=== PATIENT | female | born 1945 | race Caucasian/White ===

== ENCOUNTER → 2018-08-08 | Outpatient (CLI) | payer MEDICARE ==
--- NOTE | 2018-08-09 09:16 | CT ---
EXAMINATION TYPE: CT abdomen pelvis w con DATE OF EXAM: 08/08/2018 HISTORY: Abdominal pain with hematuria. CT DLP: 912.4mGycm Automated Exposure Control for Dose Reduction was Utilized. CONTRAST: CT scan of the abdomen and pelvis is performed with oral and with IV Contrast, patient injected with 100 mL of Isovue 300. COMPARISON: None FINDINGS: LUNG BASES: Some scattered blebs or thin-walled cysts throughout the right lower lobe are present. Th ere is mild lateral left basilar linear scarring and/or atelectasis. LIVER/GB: No significant abnormality is appreciated. PANCREAS: No significant abnormality is seen. SPLEEN: No significant abnormality is seen. ADRENALS: No significant abnormality is seen. KIDNEYS: There are prominent central simple appearing parapelvic cysts bilaterally in both kidneys. T here is symmetric cortical medullary uptake and excretion from both kidneys without hydronephrosis no sara bilaterally. Scattered pelvic phleboliths are present. No intraluminal calculus in poorly distend ed bladder is seen. BOWEL: Oral contrast reaches level of terminal ileum. There is no suspicious small or large bowel dil atation. There are diverticula near junction of left and sigmoid colon without convincing CT evidence for acute diverticulitis. Incidental normal-appearing appendix extending inferiorly medially from ce cum coronal image 51 for reference. UTERUS/ADNEXA: Anteverted uterus is seen. LYMPH NODES: No greater than 1cm abdominal or pelvic lymph nodes are appreciated. OSSEOUS STRUCTURES: Moderate disc space narrowing lumbosacral junction. Facet arthropathy lower lumba r levels. OTHER: Mild calcified plaque of aorta extends into iliac branch vessels. IMPRESSION: No significant finding is seen to account for patient's clinical symptoms of hematuria an d pain. Prominent but simple appearing parapelvic cysts in both kidneys are noted. Distal colonic div erticulosis without convincing CT evidence for acute diverticulitis.
== END | disposition home or self-care (01) ==
LOC: RADCTMAIN 15:50
PROVIDERS: ATTEND Family Medicine
DX: K57.30 Diverticulosis of large intestine without perforation or abscess without bleeding (principal); N28.1 Cyst of kidney, acquired
CPT/HCPCS: 82565; 84520; 74177; 36415; Q9967

== ENCOUNTER → 2019-12-19 | Outpatient (CLI) | payer MEDICARE ==
--- NOTE | 2019-12-19 12:05 | US ---
EXAMINATION TYPE: US pelvis complete transvag DATE OF EXAM: 12/19/2019 COMPARISON: NONE CLINICAL HISTORY: 74-year-old female R10.2 PELVIC AND PERINEAL PAIN. UTI, pelvic pressure TECHNIQUE: Transvaginal (TV) and Transabdominal (TA) . Date of LMP: unknown FINDINGS: EXAM MEASUREMENTS: Uterus: 6.4 x 2.8 x 3.5 cm Endometrial Stripe: 1.4 cm Right Ovary: unable to visualize Left Ovary: 2.1 x 1.3 x 1.3 cm 1. Uterus: Anteverted with Nabothian cysts 2. Endometrium: Thickened. Tiny 3.7 mm cystic change within. 3. Right Ovary: Obscured by overlying bowel gas 4. Left Ovary: possible complex cystic area = 1.2 x 1.4 x 1.1cm. A 7 mm mural nodule and a thin sept ation are difficult to exclude. 5. Bilateral Adnexa: appears wnl 6. Posterior cul-de-sac: appears wnl IMPRESSION: 1. Abnormally thickened endometrial stripe for a postmenopausal female. The stripe measures 1.4 cm. D ifferential considerations include endometrial hyperplasia, polyps, and endometrial carcinoma. Furthe r CAPTAIN WAITER/WAITRESS evaluation recommended. 2. A 1.4 cm complex cystic-appearing lesion of the left ovary. Unable to exclude a 7 mm soft tissue m ural nodule and internal septation. Further evaluation with contrast enhanced female pelvic MRI recom mended.
== END | disposition home or self-care (01) ==
LOC: RADUSWWP 10:17
PROVIDERS: ATTEND Family Medicine
DX: Z78.0 Asymptomatic menopausal state (principal); N83.202 Unspecified ovarian cyst, left side
CPT/HCPCS: 76830; 76856

== ENCOUNTER → 2020-05-11 | Outpatient (CLI) | payer MEDICARE ==
--- NOTE | 2020-05-11 11:52 | US ---
EXAMINATION TYPE: US pelvis complete transvag DATE OF EXAM: 05/11/2020 COMPARISON: 12/19/2019 CLINICAL HISTORY: 75-year-old female N83.0 Ovarian cyst. Follow up from previous ultrasound, 3, para 3 TECHNIQUE: Transabdominal sonographic images of the pelvis were acquired. Transvaginal sonographic i mages were medically necessary to better assess the following anatomy: endometrium and ovaries Date of LMP: about 30 years ago FINDINGS: EXAM MEASUREMENTS: Uterus: 5.6 x 3.0 x 3.2 cm Endometrial Stripe: 1.4 cm Right Ovary: not seen Left Ovary: 1.5 x 1.2 x 1.4 cm 1. Uterus: anteverted, mildly heterogeneous, nabothian cysts seen 2. Endometrium: thickened (measured at 1.4 cm on 12/19/2019 as well) 3. Right Ovary: obscured by overlying bowel gas 4. Left Ovary: 1.1 x 0.8 x 1.0cm cystic area, with some septation noted. The previously seen 7 mm mu ral based nodule is not as well-demonstrated on the current exam. 5. Bilateral Adnexa: wnl 6. Posterior cul-de-sac: wnl IMPRESSION: 1. The endometrial stripe remains excessively thickened at 1.4 cm as seen back on 12/19/2019. Further e valuation and management as clinically indicated. 2. Minimally complex cyst measuring 1.1 cm in the left ovary. The previously seen mural based nodule is not well demonstrated on the current exam. There may be some thin septation associated with the cy st. This can be reassessed at subsequent follow-ups. 3. Right ovary could not be visualized.
== END | disposition home or self-care (01) ==
LOC: RADUSWWP 10:52
PROVIDERS: ATTEND Obstetrics & Gynecology
DX: N83.292 Other ovarian cyst, left side (principal); R93.89 Abnormal findings on diagnostic imaging of other specified body structures
CPT/HCPCS: 76830; 76856

== ENCOUNTER → 2020-05-11 | Outpatient (CLI) | payer MEDICARE ==
[2020-05-11 13:05] LABS: Basophils # (A) 0.1 k/uL (0-0.2); Basophils % (A) 1 %; Eosinophils # (A) 0.1 k/uL (0-0.7); Eosinophils % (A) 1 %; HCT 45.8 % (34.0-46.0); HGB 15.2 gm/dL (11.4-16.0); Lymphocytes # (A) 1.6 k/uL (1.0-4.8); Lymphocytes % (A) 28 %; MCH 31.8 pg (25.0-35.0); MCHC 33.2 g/dL (31.0-37.0); MCV 95.8 fL (80.0-100.0); Mean Platelet Volume 6.9; Monocytes # (A) 0.4 k/uL (0-1.0); Monocytes % (A) 6 %; Neutrophils # (A) 3.5 k/uL (1.3-7.7); Neutrophils % (A) 61 %; Platelet Count 285 k/uL (150-450); RBC 4.79 m/uL (3.80-5.40); RDW 12.4 % (11.5-15.5); WBC 5.8 k/uL (3.8-10.6)
== END | disposition home or self-care (01) ==
LOC: LABPAT 10:54
PROVIDERS: ATTEND Obstetrics & Gynecology
DX: Z01.818 Encounter for other preprocedural examination (principal)
CPT/HCPCS: 85025; 93005

== ENCOUNTER 2020-05-18 06:21 | Day surgery (SDC) | payer MEDICARE ==
[2020-05-14 15:15] VITALS: BMI 27.4
--- NOTE | 2020-05-17 16:47 | P.HPOB ---
History of Present Illness H&P Date: 05/17/20 Chief Complaint: Endometrial thickening This is a 75 y.o. female who presents for dilatation and curettage with hysteroscopy due to endometrial thickening on ultrasound. She originally presented with complaints of pelvic pain for about 4 months. She did have some blood with wiping after urination and a pressure sensation. She was on 2 courses of antibiotics and the bleeding did improve. Pelvic US showed uterus measuring 6.4 x 2.8 x 3.5 cm with endometrium of 1.4 cm and a tiny 3.7 mm cystic area within. She also had a left ovarian complex cyst, 1.4 cm with a 7 mm mural nodule. Repeat US no longer showed the mural nodule. OB Hx: . History of 3 vaginal deliveries. 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 Social Hx: . Retired. Review of Systems Constitutional: Denies chills, Denies fever Eyes: denies blurred vision, denies pain Ears, nose, mouth and throat: Denies headache, Denies sore throat Cardiovascular: Denies chest pain, Denies shortness of breath Respiratory: Denies cough Gastrointestinal: Reports abdominal pain Genitourinary: Reports pelvic pain, Denies dysuria Musculoskeletal: Denies myalgias Integumentary: Denies pruritus, Denies rash Neurological: Denies numbness, Denies weakness Psychiatric: Denies anxiety, Denies depression Endocrine: Reports excessive sweating (only on scalp) Past Medical History Past Medical History: Hypertension, Thyroid Disorder Additional Past Medical History / Comment(s): Occ heartburn. Vertigo occ. Thickening of uterine lining History of Any Multi-Drug Resistant Organisms: None Reported Past Surgical History: Orthopedic Surgery Additional Past Surgical History / Comment(s): D&C's. ORIF Rt wrist, has pin. Past Anesthesia/Blood Transfusion Reactions: No Reported Reaction Past Psychological History: No Psychological Hx Reported Smoking Status: Former smoker Past Alcohol Use History: Occasional Past Drug Use History: None Reported - Past Family History Mother Family Medical History: CVA/TIA Medications and Allergies Home Medications Medication Instructions Recorded Confirmed Type Calcium Carbonate [Tums] 500 - 1,000 mg PO QID PRN 05/14/20 05/18/20 History Cholecalciferol [Vitamin D3 (25 5,000 unit PO DAILY 05/14/20 05/18/20 History Mcg = 1000 Iu)] Cyanocobalamin (Vitamin B-12) 1,000 mcg PO DAILY 05/14/20 05/18/20 History [Vitamin B-12] L.acidoph,Paracasei, B.lactis 1 each PO DAILY 05/14/20 05/18/20 History [Probiotic] Levothyroxine Sodium [Synthroid] 137 mcg PO DAILY 05/14/20 05/18/20 History Metoprolol Succinate [Toprol XL] 50 mg PO DAILY 05/14/20 05/18/20 History Zinc 30 mg PO DAILY 05/14/20 05/18/20 History Allergies Allergy/AdvReac Type Severity Reaction Status Date / Time No Known Allergies Allergy Verified 05/18/20 06:55 Exam Osteopathic Statement: *. No significant issues noted on an osteopathic structural exam other than those noted in the History and Physical/Consult. HEENT: within normal limits Heart: regular rate and rhythm Lungs: clear to auscultation bilaterally Abdomen: soft, non-tender Pelvic: uterus small, anteverted, non-tender with no adnexal masses or tenderness. Extremites: Neg. Andrade's Assessment and Plan (1) Endometrial thickening on ultrasound Current Visit: No Status: Acute Code(s): R93.89 - ABNORMAL FINDINGS ON DX IMAGING OF OTH BODY STRUCTURES SNOMED Code(s): 714920596 Plan: Proceed with dilatation and curettage with hysteroscopy. I have discussed the risks, benefits, and alternative therapies for the above- mentioned procedure and for both sedation/anesthesia as well as necessary blood products administration, if indicated, as they pertain to this patient. The patient has indicated her understanding and acceptance of the risks and procedures discussed.
[~2020-05-18 06:21] MED LIST: DEXAMETHASONE SOD PHOSPHATE 4 MG/ML 1 ML VIAL IV ONE; HYDROmorphone 0.5 MG/0.5 ML SYRINGE IVP PRN; LACTATED RINGERS 1,000 ML IV SCH; LIDOCAINE 1% (10MG/ML) FOR IV START INTRADERMA PRN; ONDANSETRON 4 MG/2 ML VIAL IVP ONE; Pre Op ABX Message 1 EACH MISC MISCELLANE ONE
[2020-05-18] MEDS ORDERED: PROPOFOL 10 MG/ML 20 ML VIAL IV ONE (07:34)
[2020-05-18] MEDS ORDERED: fentaNYL (PF) 50 MCG/ML 2 ML AMP ONE (07:34)
[2020-05-18] MEDS ORDERED: LIDOCAINE 1% INJ 10MG/ML (20 ML MDV) ONE (07:34)
--- NOTE | 2020-05-18 08:03 | P.OP ---
Date of Procedure: 05/18/20 Preoperative Diagnosis: Endometrial thickening Postmenopausal bleeding Postoperative Diagnosis: Same Procedure(s) Performed: Dilation and curettage with hysteroscopy Anesthesia: other (Mask general) Surgeon: Kaelyn Luna Estimated Blood Loss (ml): 3 Pathology: other (Endometrial curettings) Condition: stable Disposition: same day Indications for Procedure: This is a 75 y.o. female who presents for dilatation and curettage with hysteroscopy due to endometrial thickening on ultrasound. She originally presented with complaints of pelvic pain for about 4 months. She did have some blood with wiping after urination and a pressure sensation. She was on 2 courses of antibiotics and the bleeding did improve. Pelvic US showed uterus measuring 6.4 x 2.8 x 3.5 cm with endometrium of 1.4 cm and a tiny 3.7 mm cystic area within. She also had a left ovarian complex cyst, 1.4 cm with a 7 mm mural nodule. Repeat US no longer showed the mural nodule. Operative Findings: Uterus is anteverted, with no adnexal masses palpated. Upon hysteroscopy, an atrophic endometrial background is noted but a large endometrial polyp was noted originating from the right upper uterus. Scant endometrial curettings are obtained. Description of Procedure: The patient is taken to the operating room she is placed in the dorsal lithotomy position. She is prepped and draped in the normal sterile fashion. Her bladder is drained with a catheter and then removed. Examination is performed under anesthesia. Uterus is found to be small, anteverted, with no adnexal masses palpated. A weighted speculum was placed in the patient's vagina and a right angle retractor was used to visualize the cervix. The anterior lip of the cervix is grasped with a single-tooth tenaculum. Cervical os was noted to be slightly stenotic and was slightly dilated with a Silva dilator before sounding. Uterus is sounded to 6-1/2 cm. Cervix is gently dilated further with Silva dilators until a hysteroscope could be passed. Hysteroscopy is performed using normal saline. The above noted findings are made and pictures are taken. Next a polyp forceps was introduced and a large polypoid type tissue was removed. Medium-size sharp curet was introduced and sharp curettage was performed until a gritty texture was noted. Very scant further endometrial tissue was obtained. The specimen is removed from the field. The single-tooth tenaculum is removed. Minimal bleeding is noted. All sponges and instruments are removed from the vagina. All sponge counts are correct. The patient is then taken to the recovery room in stable condition.
[2020-05-18] MEDS ORDERED: KETOROLAC 15 MG/ML 1 ML VIAL IVP ONE (08:15)
[2020-05-18 08:21] VITALS: TEMP 97.3
[2020-05-18] MEDS ORDERED: hydrALAZINE HCL 20 MG/ML 1 ML VIAL IVP ONE (08:47)
[2020-05-18] MEDS ORDERED: LACTATED RINGERS 1,000 ML IV ONE (08:48)
[2020-05-18 09:18] VITALS: RESP 16
[2020-05-18 09:53] VITALS: BP 174/92; PULSE 58
== END 2020-05-18 10:16 | disposition home or self-care (01) ==
LOC: OR 06:21
PROVIDERS: ATTEND Obstetrics & Gynecology
DX: N84.0 Polyp of corpus uteri (principal); N95.0 Postmenopausal bleeding; I10 Essential (primary) hypertension; E07.9 Disorder of thyroid, unspecified; K21.9 Gastro-esophageal reflux disease without esophagitis; Z79.890 Hormone replacement therapy; Z79.899 Other long term (current) drug therapy; Z87.891 Personal history of nicotine dependence; Z82.49 Family history of ischemic heart disease and other diseases of the circulatory system
CPT/HCPCS: 88305; 58558; J0360; J1100; J2405; J2001; J3010; J1885; J2704; J1170

== ENCOUNTER → 2020-06-15 | Outpatient (CLI) | payer MEDICARE ==
[2020-06-15 09:25] LABS: Appearance,Urine Clear (Clear); Bilirubin,Urine Negative (Negative); Blood,Urine Negative (Negative); Color,Urine Light Yellow; Glucose,Urine (UA) Negative (Negative); Ketones,Urine Negative (Negative); Leukocyte Esterase,Urine Negative (Negative); Nitrite,Urine Negative (Negative); Protein,Urine Negative (Negative); Specific Gravity,Urine 1.011 (1.001-1.035); Urobilinogen,Urine <2.0 mg/dL (<2.0)
[2020-06-15 09:31] LABS: Basophils # (A) 0.1 k/uL (0-0.2); Basophils % (A) 2 %; Eosinophils # (A) 0.1 k/uL (0-0.7); Eosinophils % (A) 1 %; HCT 46.3 % (34.0-46.0); HGB 15.2 gm/dL (11.4-16.0); Lymphocytes # (A) 1.6 k/uL (1.0-4.8); Lymphocytes % (A) 28 %; MCH 31.2 pg (25.0-35.0); MCHC 32.9 g/dL (31.0-37.0); MCV 94.7 fL (80.0-100.0); Mean Platelet Volume 6.5; Monocytes # (A) 0.4 k/uL (0-1.0); Monocytes % (A) 6 %; Neutrophils # (A) 3.6 k/uL (1.3-7.7); Neutrophils % (A) 62 %; Platelet Count 276 k/uL (150-450); RBC 4.89 m/uL (3.80-5.40); RDW 12.6 % (11.5-15.5); WBC 5.8 k/uL (3.8-10.6)
[2020-06-15 15:35] LABS: African American GFR (CKD) 63.4 (60.0-200.0); Albumin 4.1 g/dL (3.80-4.90); Albumin/Globulin Ratio 1.58 (1.60-3.17); Calcium 9.6 mg/dL (8.7-10.3); Chol/HDL Ratio 3.38; Globulin 2.6 g/dL (1.6-3.3); Non-African American GFR(CKD) 54.7 (60.0-200.0); Potassium 5.5 mmol/L (3.5-5.5); Total Bilirubin 0.4 mg/dL (0.2-1.2); Total Protein 6.7 g/dL (6.2-8.2)
[2020-06-15 15:43] LABS: T4, Free (Free Thyroxine) 1.5 ng/dL (0.80-1.80)
== END | disposition home or self-care (01) ==
LOC: LABWHC1 08:38
PROVIDERS: ATTEND Family Medicine
DX: R53.82 Chronic fatigue, unspecified (principal)
CPT/HCPCS: 36415; 80053; 80061; 81003; 82306; 84439; 84443; 85025

== ENCOUNTER 2023-02-01 20:20 | Observation (INO) | payer MEDICARE ==
[2023-02-01] MEDS ORDERED: RX INFO: IV CONTRAST WAS GIVEN 1 EACH MISC MISCELLANE PRN (20:26)
--- NOTE | 2023-02-01 20:26 | ED ---
General Adult HPI - General Source: RN notes reviewed <Roberta Rondon - Last Filed: 02/01/23 20:23> <Libby Valencia - Last Filed: 02/02/23 01:13> - General Stated complaint: slurred speech Time Seen by Provider: 02/01/23 20:23 - History of Present Illness Initial comments: 77 year female presents to the emergency department with a chief complaint of slurred speech and left sided facial droop. She reports her symptoms started when she woke up around 07:00. (Roberta Rondon) 77-year-old female presents emergency Department with left-sided facial droop. States that she awoke this morning at 7 AM and had symptoms. She noted that she was having some slurred speech. Presents this evening as her symptoms did not improve. She denies any headaches or visual changes. No unilateral numbness, tingling or weakness in her extremities. No history of stroke. Does not take any blood thinners. No recent head trauma. She denies any chest pain or shortness of breath. No other alleviating, precipitating or modifying factors (Libby Valencia) - Related Data Home Medications Medication Instructions Recorded Confirmed Cholecalciferol [Vitamin D3 (25 5,000 unit PO W/LUNCH 05/14/20 02/01/23 Mcg = 1000 Iu)] L.acidoph,Paracasei, B.lactis 1 cap PO W/LUNCH 05/14/20 02/01/23 [Probiotic] Metoprolol Succinate [Toprol XL] 50 mg PO W/BRKFST 05/14/20 02/01/23 Elderberry 100mg 1 cap PO W/LUNCH 02/01/23 02/01/23 Krill Oil(Unknown Dose) 1 cap PO W/LUNCH 02/01/23 02/01/23 Levothyroxine Sodium [Synthroid] 125 mcg PO AC-BRKFST 02/01/23 02/01/23 Serrapeptase 120,000spu 1 cap PO AC-BRKFST 02/01/23 02/01/23 Turmeric 200mg 1 tab PO W/LUNCH 02/01/23 02/01/23 Vitamin C 1600mg 1 tab PO W/LUNCH 02/01/23 02/01/23 Zinc 30mg 1 tab PO W/LUNCH 02/01/23 02/01/23 Allergies Allergy/AdvReac Type Severity Reaction Status Date / Time No Known Allergies Allergy Verified 02/01/23 22:10 Review of Systems ROS Other: All systems not noted in ROS Statement are negative. <Roberta Rondon - Last Filed: 02/01/23 20:23> ROS Other: All systems not noted in ROS Statement are negative. <Libby Valencia - Last Filed: 02/02/23 01:13> ROS Statement: Those systems with pertinent positive or pertinent negative responses have been documented in the HPI. General Exam <Roberta Rondon - Last Filed: 02/01/23 20:23> General appearance: alert, in no apparent distress Head exam: Present: atraumatic Eye exam: Present: normal appearance, PERRL, EOMI. Absent: scleral icterus, conjunctival injection, periorbital swelling ENT exam: Present: other (Left-sided facial droop which appears to involve the upper and lower face. Flattened for head wrinkles) Neck exam: Present: normal inspection. Absent: tenderness, meningismus, lymphadenopathy Respiratory exam: Present: normal lung sounds bilaterally. Absent: respiratory distress, wheezes, rales, rhonchi, stridor Cardiovascular Exam: Present: regular rate, normal rhythm, normal heart sounds. Absent: systolic murmur, diastolic murmur, rubs, gallop, clicks GI/Abdominal exam: Present: soft, normal bowel sounds. Absent: distended, tenderness, guarding, rebound, rigid Extremities exam: Present: normal inspection, full ROM, normal capillary refill, other (Equal hotel custodian strength bilaterally. Equal strength in the lower extremiti es). Absent: tenderness, pedal edema, joint swelling, calf tenderness Back exam: Present: normal inspection Neurological exam: Present: alert, oriented X3, CN II-XII intact Psychiatric exam: Present: normal affect, normal mood Skin exam: Present: warm, dry, intact, normal color. Absent: rash <Libby Valencia - Last Filed: 02/02/23 01:13> - General Exam Comments Initial Comments: Visual Physical Exam Vital signs reviewed General: Well-appearing, nontoxic, no acute distress. Head: Normocephalic, atraumatic Eyes: PERRLA, EOMI ENT: Airway patent Chest: Nonlabored breathing Skin: No visual rash, normal skin tone Neuro: Alert and oriented 3 Musculoskeletal: No gross abnormalities I performed the quick note portion of this exam, verbal signature Roberta Rondon PA-C (Roberta Rondon) Course Vital Signs 02/01/23 02/01/23 02/01/23 20:25 20:49 21:19 Temperature 99.1 F 99.1 F 99.0 F Pulse Rate 63 73 66 Respiratory 18 18 18 Rate Blood Pressure 202/106 196/104 166/127 O2 Sat by Pulse 97 98 98 Oximetry 02/01/23 02/01/23 02/01/23 21:34 21:49 22:04 Temperature 99 F 99 F 99 F Pulse Rate 62 60 62 Respiratory 18 18 18 Rate Blood Pressure 185/100 161/101 163/91 O2 Sat by Pulse 98 98 98 Oximetry Medical Decision Making - Lab Data Result diagrams: 02/01/23 20:52 02/01/23 20:52 <Libby Valencia A - Last Filed: 02/02/23 01:13> - Medical Decision Making Was pt. sent in by a medical professional or institution ([facility]ERR[facility] Silva, MOLDING PLASTERER, urgent care, hospital, or long-term...) When possible be specific @ -No Did you speak to anyone other than the patient for history (EMS, parent, family, police, friend...)? What history was obtained from this source @ -No Did you review nursing and triage notes (agree or disagree)? Why? @ -I reviewed and agree with nursing and triage notes Were old charts reviewed (outside hosp., previous admission, EMS record, old EKG, old radiological studies, urgent care reports/EKG's, long-term records)? Report findings @ -No old charts were reviewed Differential Diagnosis (chest pain, altered mental status, abdominal pain women, abdominal pain men, vaginal bleeding, weakness, fever, dyspnea, syncope, headache, dizziness, GI bleed, back pain, seizure, CVA, palpatations, mental health, musculoskeletal)? @ -Differential CVA Ischemic stroke, hemorrhagic stroke, brain tumor, atypical migraine, Wernicke's encephalopathy, seizure, multiple sclerosis, meningitis, encephalitis, hypoglycemia, Guillain-Shrestha, electrolytes disturbance, myasthenia gravis.... This is not meant to be an all-inclusive list EKG interpreted by me (3pts min.). @ -Yes and demonstrates sinus rhythm with a rate of 72. ND interval 140. QRS 95. 419. No acute ST segment elevation. Inverted T wave in V2. X-rays interpreted by me (1pt min.). @ -Yes and demonstrates mild right hilar fullness CT interpreted by me (1pt min.). @ -Yes and demonstrates no acute CVA U/S interpreted by me (1pt. min.). @ -None done What testing was considered but not performed or refused? (CT, X-rays, U/S, labs)? Why? @ -None What meds were considered but not given or refused? Why? @ -None Did you discuss the management of the patient with other professionals (professionals i.e. , PA, MOLDING PLASTERER, lab, RT, psych nurse, social media developer, instructor extension work, teacher, eeo officer, case finishing machine adjuster)? Give summary @ -Spoke with Dr. Matias will admit the patient. I also spoke with Dr. Aparicio as she is a code stroke Was smoking cessation discussed for >3mins.? @ -No Was critical care preformed (if so, how long)? @ -yes, 35 minutes for code stroke evaluation Were there social determinants of health that impacted care today? How? (Homelessness, low income, unemployed, alcoholism, drug addiction, transportation, low edu. Level, literacy, decrease access to med. care, [place] [facility], rehab)? @ -No Was there de-escalation of care discussed even if they declined (Discuss DNR or withdrawal of care, Hospice)? DNR status @ -No What co-morbidities impacted this encounter? (DM, HTN, Smoking, COPD, CAD, Cancer, CVA, ARF, Chemo, Hep., AIDS, mental health diagnosis, sleep apnea, morbid obesity)? @ -None Was patient admitted / discharged? Hospital course, mention meds given and route, prescriptions, significant lab abnormalities, going to OR and other pertinent info. @ -Upon arrival patient was placed into room 1. Throat history and physical exam was performed. She does have notable facial droop and dysarthria. Code stroke was activated. Last known well was 7 AM. She is taken for CT which demonstrates no acute. She was given an aspirin. There is suspicion for Santoyo's palsy however inform the patient that she needs further evaluation for possible stroke. She was agreeable to this. Patient admitted to Dr. Matias with neurology consultation. Patient remained in stable condition awaiting a bed on the floor Undiagnosed new problem with uncertain prognosis? @ -Yes Drug Therapy requiring intensive monitoring for toxicity (Heparin, Nitro, Insulin, Cardizem)? @ -No Were any procedures done? @ -No Diagnosis/symptom? @ -Acute left-sided facial droop, CVA versus Santoyo's palsy Acute, or Chronic, or Acute on Chronic? @ -Acute Uncomplicated (without systemic symptoms) or Complicated (systemic symptoms)? @ -Complicated Side effects of treatment? @ -No Exacerbation, Progression, or Severe Exacerbation? @ -No Poses a threat to life or bodily function? How? (Chest pain, [place], [place], pneumonia, PE, COPD, DKA, ARF, appy, cholecystitis, CVA, Diverticulitis, Homicidal, Suicidal, threat to staff... and all critical care pts) @ -Yes patient has suffered from left-sided facial droop which may be indicative of a CVA (Libby Valencia) - Lab Data Lab Results 02/01/23 02/01/23 02/01/23 Range/Units 20:52 20:52 20:52 WBC 6.9 (3.8-10.6) k/uL RBC 4.41 (3.80-5.40) m/uL Hgb 14.5 (11.4-16.0) gm/dL Hct 42.2 (34.0-46.0) % MCV 95.6 (80.0-100.0) fL MCH 32.9 (25.0-35.0) pg MCHC 34.5 (31.0-37.0) g/dL RDW 13.2 (11.5-15.5) % Plt Count 192 (150-450) k/uL MPV 7.5 Neutrophils % 72 % Lymphocytes % 20 % Monocytes % 5 % Eosinophils % 1 % Basophils % 0 % Neutrophils # 5.0 (1.3-7.7) k/uL Lymphocytes # 1.4 (1.0-4.8) k/uL Monocytes # 0.4 (0-1.0) k/uL Eosinophils # 0.1 (0-0.7) k/uL Basophils # 0.0 (0-0.2) k/uL PT 10.8 (9.0-12.0) sec INR 1.0 (<1.2) APTT 24.1 (22.0-30.0) sec Sodium 134 L (137-145) mmol/L Potassium 4.5 (3.5-5.1) mmol/L Chloride 102 (98-107) mmol/L Carbon Dioxide 24 (22-30) mmol/L Anion Gap 8 mmol/L BUN 21 H (7-17) mg/dL Creatinine 0.83 (0.52-1.04) mg/dL Est GFR (CKD-EPI)AfAm 79 (>60 ml/min/1.73 sqM) Est GFR (CKD-EPI)NonAf 68 (>60 ml/min/1.73 sqM) Glucose 104 H (74-99) mg/dL Calcium 8.8 (8.4-10.2) mg/dL Total Bilirubin 1.0 (0.2-1.3) mg/dL AST 22 (14-36) U/L ALT 12 (4-34) U/L Alkaline Phosphatase 67 (38-126) U/L Creatine Kinase 42 (30-135) U/L Troponin I (0.000-0.034) ng/mL Total Protein 6.6 (6.3-8.2) g/dL Albumin 3.4 L (3.5-5.0) g/dL 02/01/23 Range/Units 20:52 WBC (3.8-10.6) k/uL RBC (3.80-5.40) m/uL Hgb (11.4-16.0) gm/dL Hct (34.0-46.0) % MCV (80.0-100.0) fL MCH (25.0-35.0) pg MCHC (31.0-37.0) g/dL RDW (11.5-15.5) % Plt Count (150-450) k/uL MPV Neutrophils % % Lymphocytes % % Monocytes % % Eosinophils % % Basophils % % Neutrophils # (1.3-7.7) k/uL Lymphocytes # (1.0-4.8) k/uL Monocytes # (0-1.0) k/uL Eosinophils # (0-0.7) k/uL Basophils # (0-0.2) k/uL PT (9.0-12.0) sec INR (<1.2) APTT (22.0-30.0) sec Sodium (137-145) mmol/L Potassium (3.5-5.1) mmol/L Chloride (98-107) mmol/L Carbon Dioxide (22-30) mmol/L Anion Gap mmol/L BUN (7-17) mg/dL Creatinine (0.52-1.04) mg/dL Est GFR (CKD-EPI)AfAm (>60 ml/min/1.73 sqM) Est GFR (CKD-EPI)NonAf (>60 ml/min/1.73 sqM) Glucose (74-99) mg/dL Calcium (8.4-10.2) mg/dL Total Bilirubin (0.2-1.3) mg/dL AST (14-36) U/L ALT (4-34) U/L Alkaline Phosphatase (38-126) U/L Creatine Kinase (30-135) U/L Troponin I <0.012 (0.000-0.034) ng/mL Total Protein (6.3-8.2) g/dL Albumin (3.5-5.0) g/dL Disposition <Roberta Rondon - Last Filed: 02/01/23 20:23> Is patient prescribed a controlled substance at d/c from ED?: No Time of Disposition: 23:11 Decision to Admit Reason: Admit from EC Decision Date: 02/01/23 Decision Time: 23:11 <Libby Valencia - Last Filed: 02/02/23 01:13> Clinical Impression: Facial droop Disposition: ADMITTED IP TO THIS HOSP Condition: Stable
--- NOTE | 2023-02-01 20:46 | CT ---
EXAMINATION TYPE: CT brain wo con DATE OF EXAM: 02/01/2023 COMPARISON: 02/01/2023 INDICATION: left sided facial droop. neuro deficit DLP: 1159.4 mGycm, Automated exposure control for dose reduction was used. CONTRAST: None CT of the brain is performed utilizing 3 mm thick sections through the posterior fossa and 3 mm thick sections through the remaining calvarium. Study is performed within 24 hours of arrival to the hosp [place]. No abnormal hyperdensity is present to suggest an acute intracranial hemorrhage. No mass lesion is evident. No acute infarcts are evident. Ventricles and sulci are appropriate for the patient age. Paranasal sinuses and mastoid air cells within the [id number] are clear. IMPRESSIONS: 1. No acute intracranial process. Follow-up MRI can be performed as clinically indicated
[2023-02-01 21:06] LABS: Basophils % (A) 0 %; Eosinophils # (A) 0.1 k/uL (0-0.7); Eosinophils % (A) 1 %; HCT 42.2 % (34.0-46.0); HGB 14.5 gm/dL (11.4-16.0); Lymphocytes # (A) 1.4 k/uL (1.0-4.8); Lymphocytes % (A) 20 %; MCH 32.9 pg (25.0-35.0); MCHC 34.5 g/dL (31.0-37.0); MCV 95.6 fL (80.0-100.0); Mean Platelet Volume 7.5; Monocytes # (A) 0.4 k/uL (0-1.0); Monocytes % (A) 5 %; Neutrophils % (A) 72 %; Platelet Count 192 k/uL (150-450); RBC 4.41 m/uL (3.80-5.40); RDW 13.2 % (11.5-15.5); WBC 6.9 k/uL (3.8-10.6)
[2023-02-01 21:15] LABS: ALT 12 U/L (4-34); AST 22 U/L (14-36); African American GFR (CKD) 79 (>60 ml/min/1.73 sqM); Albumin 3.4 g/dL (3.5-5.0); Alkaline Phosphatase 67 U/L (38-126); Anion Gap 8 mmol/L; Blood Urea Nitrogen 21 mg/dL (7-17); Calcium 8.8 mg/dL (8.4-10.2); Carbon Dioxide 24 mmol/L (22-30); Chloride 102 mmol/L (98-107); Creatine Kinase 42 U/L (30-135); Glucose 104 mg/dL (74-99); Non-African American GFR(CKD) 68 (>60 ml/min/1.73 sqM); Potassium 4.5 mmol/L (3.5-5.1); Sodium 134 mmol/L (137-145); Total Protein 6.6 g/dL (6.3-8.2)
[2023-02-01 21:16] LABS: Partial Thromboplastin Time 24.1 sec (22.0-30.0); Prothrombin Time 10.8 sec (9.0-12.0)
--- NOTE | 2023-02-01 22:38 | CT ---
EXAMINATION TYPE: CT angio head neck DATE OF EXAM: 02/01/2023 HISTORY: left sided facial droop. neuro deficit COMPARISON: CT DLP: 431.6 mGycm. Automated Exposure Control for Dose Reduction was Utilized. TECHNIQUE: CTA scan of the neck is performed with IV Contrast, patient injected with 82ml mL of Isov ue 370, axial images are obtained, coronal and sagittal reformatted images are reviewed. Three-D kye nstructed images are created on an independent workstation and reviewed. Source images are reviewed. FINDINGS: Carotid/Vascular Structures: There is a 3 vessel arch. Common carotid arteries bifurcate into internal and external carotid arteries without significant codie w limiting stenosis. There is a kink within the mid left internal carotid artery. Vertebral arteries are codominant. Internal carotid arteries and vertebral arteries are patent to the skull base. Cervical of Sal: Vertebral basilar system appears normal. Posterior cerebral vasculature is unrema rkable. Internal carotid arteries bifurcate normally into A1 and M1 segments. A2 segments are normal. The anterior communicating artery is patent. The right posterior communicating artery is patent. The left posterior communicating artery may be absent. IMPRESSION: 1. No flow-limiting stenosis bilateral carotid bifurcations. 2. Normal [place] of [place] NASCET criteria was used in interpretation of this exam?
--- NOTE | 2023-02-01 22:58 | XR ---
EXAM: XR Chest, 2 Views CLINICAL HISTORY: ITS.REASON XR Reason: altered mental status TECHNIQUE: Frontal and lateral views of the chest. COMPARISON: None. FINDINGS: Lungs: Right hilar fullness. Pleural space: Unremarkable. No pneumothorax. Heart: Unremarkable. No cardiomegaly. Bones/joints: Degenerative changes seen in the spine and shoulders. IMPRESSION: 1. No radiographic evidence of acute cardiopulmonary abnormality. 2. Right hilar fullness. Consider evaluation with CT as a mass and/or lymphadenopathy is not excluded.
[2023-02-01] MEDS ORDERED: ASPIRIN 325 MG TAB PO STA (23:11)
[2023-02-01] MEDS ORDERED: ACETAMINOPHEN TAB 325 MG TAB PO PRN (23:11)
[2023-02-01] MEDS ORDERED: ATORVASTATIN 80 MG TAB PO SCH (23:15)
--- NOTE | 2023-02-02 04:07 | P.HPIM ---
History of Present Illness H&P Date: 02/02/23 Chief Complaint: left facial droop 77-year-old female with hypothyroid hypertension Coming in for evaluation of left facial droop she woke up this morning at 7 in the morning noticed that she has left facial droop and slurred speech however she did not seek any medic L help she was hoping for that to improve on its own but then this evening she decided to come in for evaluation as symptoms has not improved she denies any associated changes in vision, hearing, or weakness nubmness or tingling in her extremities no history of stroke, CAD or blood clots. no history of afib she denies tobacco smoking ,illicit drugs, but admits to a cocktail or two every night denies any recent injuries, falls or head trauma. review of systems Pertinent positives as noted in HPI. All other systems were reviewed and are negative on exam Constitutional: No acute distress, conversant, pleasant Eyes: Anicteric sclerae, moist conjunctiva, Pupils equal round reactive to light ENMT: NC/AT Oropharynx clear, no erythema, or exudates Neck: Supple, no masses, or JVD No carotid bruits No thyromegaly Lungs: Clear to auscultation Clear to percussion Normal respiratory effort, no accessory muscle use Cardiovascular: Heart regular in rate and rhythm, No murmurs, gallops, or rubs No peripheral edema Abdominal: Soft Nontender, no guarding, rebound or rigidity Abdomen moving with respiration Normoactive bowel sounds No hepatomegaly, No splenomegaly No palpable mass No abdominal wall hernia noted Skin: Normal temperature, tone, texture, turgor No induration No subcutaneous nodules No rash, lesions No ulcers Extremities: No digital cyanosis No clubbing Pedal pulses intact and symmetrical Radial pulses intact and symmetrical No calf tenderness Psychiatric: Alert and oriented to person, place and time Appropriate affect fair judgement Neuro Muscles Strength 5/5 in all 4 extremities Sensation to light touch grossly present throughout Cranial nerves II-XII grossly intact except for VII CN on the left side with some degree of left facial droop of upper motor neuron type. finger nose exam intact bilaterally Lymphatics: no palpable cervical or supraclavicular lymph nodes Past Medical History Past Medical History: Hypertension History of Any Multi-Drug Resistant Organisms: None Reported Past Surgical History: Orthopedic Surgery Past Psychological History: No Psychological Hx Reported Smoking Status: Never smoker Past Alcohol Use History: Daily Past Drug Use History: None Reported Medications and Allergies Home Medications Medication Instructions Recorded Confirmed Type Cholecalciferol [Vitamin D3 (25 5,000 unit PO W/LUNCH 05/14/20 02/01/23 History Mcg = 1000 Iu)] L.acidoph,Paracasei, B.lactis 1 cap PO W/LUNCH 05/14/20 02/01/23 History [Probiotic] Metoprolol Succinate [Toprol XL] 50 mg PO W/BRKFST 05/14/20 02/01/23 History Elderberry 100mg 1 cap PO W/LUNCH 02/01/23 02/01/23 History Krill Oil(Unknown Dose) 1 cap PO W/LUNCH 02/01/23 02/01/23 History Levothyroxine Sodium [Synthroid] 125 mcg PO AC-BRKFST 02/01/23 02/01/23 History Serrapeptase 120,000spu 1 cap PO AC-BRKFST 02/01/23 02/01/23 History Turmeric 200mg 1 tab PO W/LUNCH 02/01/23 02/01/23 History Vitamin C 1600mg 1 tab PO W/LUNCH 02/01/23 02/01/23 History Zinc 30mg 1 tab PO W/LUNCH 02/01/23 02/01/23 History Allergies Allergy/AdvReac Type Severity Reaction Status Date / Time No Known Allergies Allergy Verified 02/01/23 22:10 Physical Exam Vitals: Vital Signs Temp Pulse Resp BP Pulse Ox 02/02/23 01:13 68 18 171/96 98 02/02/23 00:13 62 18 175/105 98 02/01/23 23:49 66 18 168/89 98 02/01/23 23:19 64 18 170/96 98 02/01/23 23:13 99.0 F 64 18 170/96 98 02/01/23 22:49 99 F 68 18 182/92 98 02/01/23 22:19 99 F 64 18 167/91 98 02/01/23 22:04 99 F 62 18 163/91 98 02/01/23 21:49 99 F 60 18 161/101 98 02/01/23 21:34 99 F 62 18 185/100 98 02/01/23 21:19 99.0 F 66 18 166/127 98 02/01/23 20:49 99.1 F 73 18 196/104 98 02/01/23 20:25 99.1 F 63 18 202/106 97 Intake and Output 02/01/23 02/01/23 02/02/23 14:59 22:59 06:59 Other: Weight 77.111 kg Results CBC & Chem 7: 02/01/23 20:52 02/01/23 20:52 Labs: Abnormal Lab Results - Last 24 Hours (Table) 02/01/23 Range/Units 20:52 Sodium 134 L (137-145) mmol/L BUN 21 H (7-17) mg/dL Glucose 104 H (74-99) mg/dL Albumin 3.4 L (3.5-5.0) g/dL Assessment and Plan Assessment: 77 year old female coming in with left facial droop and slurred speech, I discussed the case with ED doc and I accepted the admission for stroke for further workup with anticiipated length of stay > 2 midnights stroke with left facial droop out of window for tpa CT brain no acute pathology CTA head and neck no major blood vessel occlusions blood work over all unremarkable Hgb 14.5 , WBC 6.9 BUN 21 cr 0.83 trops negative EKG NSR CXR no acute pathology aspirin atorvastatin plavix neuro consult PT /OT neuro checks permissive hypertension resume metoprolol in AM check echocardiogram with bubble study check lipid panel in AM hypothyroid resume levothyroxine full code DVT PPX mechanical
[2023-02-02] MEDS ORDERED: CLOPIDOGREL 75 MG TAB PO STA (04:18)
[2023-02-02] MEDS: LEVOTHYROXINE 125 MCG TAB PO SCH (05:51)
[2023-02-02] MEDS: METOPROLOL SUCCINATE (ER) 50 MG TAB.ER.24H PO SCH (06:59)
[2023-02-02] MEDS: PANTOPRAZOLE 40 MG TABLET PO SCH (07:00)
[2023-02-02] MEDS: ASPIRIN 325 MG TAB PO SCH (08:16)
[2023-02-02] MEDS: CLOPIDOGREL 75 MG TAB PO SCH (08:16)
[2023-02-02] MEDS: ATORVASTATIN 40 MG TAB PO SCH (08:16)
--- NOTE | 2023-02-02 15:29 | CA ---
Transthoracic Echo Report Name: Geraldine Jo Age: 77 Gender: F : 1945 Exam Date: 02/02/2023 09:33 Exam Location: [facility] Ht (in): 66 Wt (lb): 170 Ordering Physician: Ashly Rodriguez MD Attending/Referring Phys: [id number], Michael Tamper Operator Remi Waller Procedure CPT: Indications: bubble study for stroke Cardiac Hx: Technical Quality: Good Contrast 1: Total Dose (mL): Contrast 2: Total Dose (mL): MEASUREMENTS (Male / Female) Normal Values 2D ECHO LV Diastolic Diameter PLAX 4.2 cm 4.2 - 5.9 / 3.9 - 5.3 cm LV Systolic Diameter PLAX 3.1 cm IVS Diastolic Thickness 1.1 cm 0.6 - 1.0 / 0.6 - 0.9 cm LVPW Diastolic Thickness 1.0 cm 0.6 - 1.0 / 0.6 - 0.9 cm LV Relative Wall Thickness 0.5 RV Internal Dim ED PLAX 2.9 cm LVOT Diameter 2.1 cm Aortic Root Diameter 2.9 cm LA Systolic Diameter LX 2.5 cm 3.0 - 4.0 / 2.7 - 3.8 cm LV Diastolic Volume MOD BP 52.4 cm??? 67 - 155 / 56 - 104 cm??? LV Systolic Volume MOD BP 21.4 cm??? 22 - 58 / 19 - 49 cm??? LV Ejection Fraction MOD BP 59.1 % >= 55 % LV Cardiac Index MOD BP 889.9 cm???/min???m??? LV Diastolic Volume MOD 4C 53.2 cm??? LV Systolic Volume MOD 4C 21.2 cm??? LV Ejection Fraction MOD 4C 60.2 % LV Cardiac Index MOD 4C 922.1 cm???/min???m??? LV Diastolic Length 4C 7.4 cm LV Systolic Length 4C 6.3 cm LV Diastolic Volume MOD 2C 51.5 cm??? LV Systolic Volume MOD 2C 20.6 cm??? LV Ejection Fraction MOD 2C 59.9 % LV Cardiac Index MOD 2C 887.3 cm???/min???m??? LV Diastolic Length 2C 7.5 cm LV Systolic Length 2C 6.7 cm LA Volume 48.7 cm??? 18 - 58 / 22 - 52 cm??? Ascending Aorta Diameter 3.2 cm DOPPLER AV Peak Velocity 136.7 cm/s AV Peak Gradient 7.5 mmHg AI Peak Velocity 107.3 cm/s AI Peak Gradient 4.6 mmHg AI Pressure Half Time 256.2 ms LVOT Peak Velocity 88.2 cm/s LVOT Peak Gradient 3.1 mmHg AV Area Cont Eq pk 2.2 cm??? MV Peak Velocity 98.5 cm/s MV Peak Gradient 3.9 mmHg MV Mean Velocity 38.3 cm/s MV Mean Gradient 0.7 mmHg MV Velocity Time Integral 30.1 cm Mitral E Point Velocity 41.5 cm/s Mitral A Point Velocity 90.9 cm/s Mitral E to A Ratio 0.5 MV Deceleration Time 495.5 ms MV E' Velocity 4.7 cm/s Mitral E to MV E' Ratio 8.8 TR Peak Velocity 189.9 cm/s TR Peak Gradient 14.4 mmHg Right Ventricular Systolic Press 20.7 mmHg PV Peak Velocity 85.3 cm/s PV Peak Gradient 2.9 mmHg FINDINGS Left Ventricle Normal LV size and wall thickness. Left ventricular ejection fraction is estimated at 50-55 %. Right Ventricle Normal right ventricular size. RVSP= 34mmhg. Right Atrium Normal right atrial size. Left Atrium Normal left atrial size. LA Volume index= 26ml/m2. Negative agitated saline study. Mitral Valve Structurally normal mitral valve. No mitral regurgitation. Aortic Valve Trileaflet aortic valve. Trace AI. Tricuspid Valve Structurally normal tricuspid valve. Mild TR. Pulmonic Valve Pulmonic valve not well visualized. Pericardium Normal pericardium. Aorta Normal size aortic root and proximal ascending aorta. CONCLUSIONS Negative Bubble study. Normal LV size and systolic function Previewed by: Dr. Ronald Mcdonnell MD (Electronically Signed) Final Date: 02 February 2023 15:28
[2023-02-02 18:14] LABS: Chol/HDL Ratio 2.92 Ratio; LDL Cholesterol,Calculated 79.8 mg/dL (0.0-131.0); VLDL Calculation 14.94 mg/dL (5.00-40.00)
[2023-02-02 22:29] LABS: T4, Free (Free Thyroxine) 1.47 ng/dL (0.78-2.19)
--- NOTE | 2023-02-02 23:34 | P.CNNES ---
History of Present Illness Consult date: 02/02/23 Requesting physician: Libby Valencia Reason for Consult: left sided facial droop, bells vs cva History of Present Illness: Patient is a 77-year-old right-handed female with history of hypertension, came to the hospital yesterday at 8:20 PM for strokelike symptoms. Patient states that she woke up yesterday at 7 AM and felt something weird about her left side of the face and also noticed slurred speech. She also noticed some different feeling in the left upper limb, not as good as the right. She denies any symptoms in the lower extremities. Denies any changes in the taste sensation, or any headache. Vital signs on arrival blood pressure 202/106, pulse rate 63, temperature 99.1. Blood test shows normal CBC, PT/PTT, normal CMP, troponin. TSH is 0.140, free T4 1 0.47. Internal medicine to address abnormal thyroid functions. CT head revealed no acute intracranial process. Follow-up MRI can be performed as clinically indicated. Chest x-ray revealed no radiographic evidence of acute cardiopulmonary abnormality. Right hilar fullness. Consider evaluation with CT as a mass and/or lymphadenopathy is not excluded. Patient smoked 1 pack per day for 30 years, quit in mid 40s. She has hypertension for 3-4 years. Denies diabetes. She drinks couple drinks per night. Review of Systems Constitutional: Denies chills, Denies fever Eyes: denies blurred vision, denies diplopia, denies pain Ears: bilateral: tinnitus (Old), deny: decreased hearing, ear discharge Ears, nose, mouth and throat: Denies headache, Denies sore throat Cardiovascular: Denies chest pain, Denies shortness of breath Respiratory: Denies cough, Denies excessive sputum Gastrointestinal: Denies abdominal pain, Denies diarrhea, Denies nausea, Denies vomiting Genitourinary: Denies dysuria, Denies hematuria, Denies urge incontinence Musculoskeletal: Reports neck pain (sleeping and see chiropracter), Denies low back pain, Denies myalgias Integumentary: Denies pruritus, Denies rash Neurological: Reports as per HPI Psychiatric: Denies anxiety, Denies depression Endocrine: Denies fatigue, Denies weight change Past Medical History Past Medical History: Hypertension, Thyroid Disorder History of Any Multi-Drug Resistant Organisms: None Reported Past Surgical History: Orthopedic Surgery Past Psychological History: No Psychological Hx Reported Smoking Status: Former smoker Past Alcohol Use History: Daily Past Drug Use History: None Reported Medications and Allergies Home Medications Medication Instructions Recorded Confirmed Type Cholecalciferol [Vitamin D3 (25 5,000 unit PO W/LUNCH 05/14/20 02/01/23 History Mcg = 1000 Iu)] L.acidoph,Paracasei, B.lactis 1 cap PO W/LUNCH 05/14/20 02/01/23 History [Probiotic] Metoprolol Succinate [Toprol XL] 50 mg PO W/BRKFST 05/14/20 02/01/23 History Elderberry 100mg 1 cap PO W/LUNCH 02/01/23 02/01/23 History Krill Oil(Unknown Dose) 1 cap PO W/LUNCH 02/01/23 02/01/23 History Levothyroxine Sodium [Synthroid] 125 mcg PO AC-BRKFST 02/01/23 02/01/23 History Serrapeptase 120,000spu 1 cap PO AC-BRKFST 02/01/23 02/01/23 History Turmeric 200mg 1 tab PO W/LUNCH 02/01/23 02/01/23 History Vitamin C 1600mg 1 tab PO W/LUNCH 02/01/23 02/01/23 History Zinc 30mg 1 tab PO W/LUNCH 02/01/23 02/01/23 History Allergies Allergy/AdvReac Type Severity Reaction Status Date / Time No Known Allergies Allergy Verified 02/01/23 22:10 Physical Examination - Vital Signs Vital Signs: Vital Signs Temp Pulse Pulse Resp BP BP Pulse Ox 02/02/23 18:20 97.5 F L 60 18 167/78 95 02/02/23 06:00 65 18 173/93 98 02/02/23 01:13 68 18 171/96 98 02/02/23 00:13 62 18 175/105 98 02/01/23 23:49 66 18 168/89 98 02/01/23 23:19 64 18 170/96 98 02/01/23 23:13 99.0 F 64 18 170/96 98 02/01/23 22:49 99 F 68 18 182/92 98 02/01/23 22:19 99 F 64 18 167/91 98 02/01/23 22:04 99 F 62 18 163/91 98 02/01/23 21:49 99 F 60 18 161/101 98 02/01/23 21:34 99 F 62 18 185/100 98 02/01/23 21:19 99.0 F 66 18 166/127 98 02/01/23 20:49 99.1 F 73 18 196/104 98 02/01/23 20:25 99.1 F 63 18 202/106 97 Intake and Output 02/02/23 02/02/23 02/02/23 06:59 14:59 22:59 Other: Weight 77.111 kg Patient is an elderly female, very pleasant, in no acute distress. Patient is alert awake oriented to time place and person. Speech and language functions are normal. Patient can name and repeat very well. No aphasia or dysarthria. Attention, concentration and fund of knowledge is adequate. On cranial nerve examination, pupils are equal, round and reacting to light, visual mota are full on confrontation, with no neglect on double simultaneous stimulation. Extraocular muscles are intact with no nystagmus. Patient has mild left facial weakness, central type, with sparing of the forehead. Her tongue protrudes to the midline. Palatal elevation and sensation normal, hearing and shoulder shrug normal, facial sensation normal. On muscle strength testing, there is no pronator drift and the strength is normal in arms and legs distally and proximally. Deep tendon reflexes are symmetric 1+ all over and plantars are downgoing bilaterally. Sensory to touch is equal with no neglect on double simultaneous stimulation. Cerebellar function showed no ataxia for [id number] testing. No dysdiadochokinesia. No ataxia for [id number] testing on either side. Tone and bulk of muscles normal. Gait deferred.. On general examination, there is no carotid bruit or murmur, S1-S2 audible. Chest is clear on consultation. Abdomen is soft nontender. No organomegaly, bowel sounds present. Peripheral pulses are present. No edema. Results - Laboratory Findings CBC and BMP: 02/01/23 20:52 02/01/23 20:52 Abnormal Lab Findings: Abnormal Labs 02/01/23 20:52 Sodium 134 L BUN 21 H Glucose 104 H Albumin 3.4 L Assessment and Plan Assessment: * Probable acute ischemic stroke with left facial weakness, central type. Patient also had mild symptoms left upper extremities but now seems to have resolved. No evidence of Santoyo's palsy. Patient's current NIH stroke scale is 1. * Hypertension, recently worse * Hyperlipidemia * Hypothyroidism * X tobacco use Plan: * Patient was not a candidate for TPA, as she came > 4.5 hours from stroke onset. No large vessel occlusion. * Check MRI of the brain without contrast, evaluate for acute CVA * 2-D echo with bubble study revealed normal left-ventricular size and systolic function with EF 50-55%. Normal left atrial size. Negative bubble study. Aortic valve normal. Trace AI. * CTA head and neck showed: No flow-limiting stenosis bilateral carotid bifur cation. Normal [place] of [place]. * Fasting a.m. lipid panel with cholesterol 144, LDL 79.8, HDL 49 and triglycerides 74. Agree with starting Lipitor 40 mg daily. * Hemoglobin A1c * Permissive hypertension for next 24-48 hours * Close neuro checks. * Patient has received a loading dose of Plavix 300 mg in the ER, and started on Plavix 75 mg daily. Patient also received aspirin 325 mg daily. * Telemetry monitoring rule out any arrhythmia * Speech therapy * Neurology will continue to follow. Thank you for the consult.
[2023-02-03] MEDS: LEVOTHYROXINE 125 MCG TAB PO SCH (08:41)
[2023-02-03] MEDS: METOPROLOL SUCCINATE (ER) 50 MG TAB.ER.24H PO SCH (08:41)
[2023-02-03] MEDS: PANTOPRAZOLE 40 MG TABLET PO SCH (08:41)
[2023-02-03] MEDS: ASPIRIN 325 MG TAB PO SCH (09:33)
[2023-02-03] MEDS: ATORVASTATIN 40 MG TAB PO SCH (09:33)
[2023-02-03] MEDS: CLOPIDOGREL 75 MG TAB PO SCH (09:33)
[2023-02-03 10:54] VITALS: BP 156/80; PULSE 66; RESP 18; TEMP 97.6
--- NOTE | 2023-02-03 12:59 | P.DS ---
Providers Date of admission: 02/01/23 23:11 Expected date of discharge: 02/03/23 Attending physician: Ashly Rodriguez MD Consults: 02/01/23 23:12 Consult Physician Urgent Consulting Provider: Prerna Christianson Consult Reason/Comments: left sided facial droop, bells vs cva Do you want consulting provider notified?: Yes Primary care physician: DICK [place] Hospital Course: Discharge Diagnosis: Acute ischemic stroke with left-sided facial weakness Hypertension Dyslipidemia Hypothyroidism Hospital Course: 77-year-old female with hypothyroid and hypertension presented with left facial droop. Out of TPA window. CT brain no acute pathology CTA head and neck no major blood vessel occlusions blood work over all unremarkable Hgb 14.5 , WBC 6.9 BUN 21 cr 0.83 trops negative EKG NSR CXR no acute pathology Echocardiogram showed normal LV size and systolic function, negative bubble study Facial droop improved at the time of discharge. Patient being discharged with a 30 day event monitor, aspirin, Plavix, statin. Dual antiplatelet therapy for the 21 days, and then aspirin alone. Follow-up with PCP and neurology. Her TSH was mildly suppressed, normal free T4. Patient is on levothyroxine. Repeat TSH in 4-6 weeks. She may need further titration of blood pressure medications as an outpatient. Patient seen and examined at bedside. Vital signs reviewed and stable. General: nontoxic, no distress, appears at stated age Derm: warm, dry Head: atraumatic, normocephalic, symmetric Eyes: EOMI, no lid lag, anicteric sclera Mouth: no lip lesion, mucus membranes moist Cardiovascular: S1S2 reg, no murmur Lungs: CTA bilateral, no rhonchi, no rales , no accessory muscle use Abdominal: soft, nontender to palpation, no guarding, no appreciable organomegaly Ext: no gross muscle atrophy, no edema, no contractures Neuro: CN II-XI grossly intact, no focal neuro deficits Psych: Alert, oriented, appropriate affect A total of 36 minutes of time were spent preparing this complex discharge summary. Patient was discharged on 02/03/23 at 10:31. Patient Condition at Discharge: Stable Plan - Discharge Summary Discharge Rx Participant: Yes New Discharge Prescriptions: New Aspirin 81 mg PO DAILY #90 tab Atorvastatin [Lipitor] 40 mg PO DAILY #90 tab Clopidogrel [Plavix] 75 mg PO DAILY #20 tab Pantoprazole [Protonix] 40 mg PO AC-BRKFST #90 tab Continue Metoprolol Succinate [Toprol XL] 50 mg PO W/BRKFST Cholecalciferol [Vitamin D3 (25 Mcg = 1000 Iu)] 5,000 unit PO W/LUNCH L.acidoph,Paracasei, B.lactis [Probiotic] 1 cap PO W/LUNCH Vitamin C 1600mg 1 tab PO W/LUNCH Zinc 30mg 1 tab PO W/LUNCH Levothyroxine Sodium [Synthroid] 125 mcg PO AC-BRKFST Turmeric 200mg 1 tab PO W/LUNCH No Action Elderberry 100mg 1 cap PO W/LUNCH Serrapeptase 120,000spu 1 cap PO AC-BRKFST Krill Oil(Unknown Dose) 1 cap PO W/LUNCH Discharge Medication List Cholecalciferol [Vitamin D3 (25 Mcg = 1000 Iu)] 5,000 unit PO W/LUNCH 05/14/20 [History] L.acidoph,Paracasei, B.lactis [Probiotic] 1 cap PO W/LUNCH 05/14/20 [History] Metoprolol Succinate [Toprol XL] 50 mg PO W/BRKFST 05/14/20 [History] Elderberry 100mg 1 cap PO W/LUNCH 02/01/23 [History] Krill Oil(Unknown Dose) 1 cap PO W/LUNCH 02/01/23 [History] Levothyroxine Sodium [Synthroid] 125 mcg PO AC-BRKFST 02/01/23 [History] Serrapeptase 120,000spu 1 cap PO AC-BRKFST 02/01/23 [History] Turmeric 200mg 1 tab PO W/LUNCH 02/01/23 [History] Vitamin C 1600mg 1 tab PO W/LUNCH 02/01/23 [History] Zinc 30mg 1 tab PO W/LUNCH 02/01/23 [History] Aspirin 81 mg PO DAILY #90 tab 02/03/23 [Rx] Atorvastatin [Lipitor] 40 mg PO DAILY #90 tab 02/03/23 [Rx] Clopidogrel [Plavix] 75 mg PO DAILY #20 tab 02/03/23 [Rx] Pantoprazole [Protonix] 40 mg PO AC-BRKFST #90 tab 02/03/23 [Rx] Follow up Appointment(s)/Referral(s): Arelis Pham MD [REFERRING] - 1 Week (Neurology) Susan Roy NPC [Primary Care Provider] - 1-2 days Patient Instructions/Handouts: Ischemic Stroke (DC) Activity/Diet/Wound Care/Special Instructions: Please see your PCP and neurologist. Discharge Disposition: HOME SELF-CARE
== END 2023-02-03 12:26 | disposition home or self-care (01) ==
LOC: EC 20:20 → 3SCARD 23:11
PROVIDERS: ADMIT Internal Medicine; ATTEND Internal Medicine
DX: R29.810 Facial weakness (principal); R47.81 Slurred speech; I10 Essential (primary) hypertension; E78.5 Hyperlipidemia, unspecified; E03.9 Hypothyroidism, unspecified; F17.200 Nicotine dependence, unspecified, uncomplicated; Z79.890 Hormone replacement therapy; Z79.899 Other long term (current) drug therapy
CPT/HCPCS: 99285; 36415; 93005; 93306; 93270; 97161; 97165; 92523; 84439; 80061; 80053; 84443; 82550; 84484; 85025; 85610; 85730; 83036; 71046; 70496; 70450; 70498; G0378 ×3; Q9967